=== PATIENT | female | born 1965 ===

== ENCOUNTER 2017-05-11 08:16 | Day surgery (SDC) | payer MEDICAID ==
[2017-05-11] MEDS ORDERED: Lactated Ringer's 500 ML IV ONE (08:46)
[2017-05-11 08:53] VITALS: BMI 31.6
[2017-05-11] MEDS ORDERED: Midazolam 2 MG/2 ML VIAL ONE (11:56)
[2017-05-11] MEDS ORDERED: Propofol 10 mg/ml Inj (20 ML) ONE ×2 (11:56→12:21)
[2017-05-11 12:41] VITALS: O2SAT 100
[2017-05-11 12:54] VITALS: BP 118/65; PULSE 58; RESP 15; TEMP 97
== END 2017-05-11 13:18 | disposition home or self-care (01) ==
LOC: H.ENDO 08:16
PROVIDERS: ATTEND Internal Medicine Gastroenterology
DX: Z12.11 Encounter for screening for malignant neoplasm of colon (principal); K57.30 Diverticulosis of large intestine without perforation or abscess without bleeding; K64.0 First degree hemorrhoids; K29.70 Gastritis, unspecified, without bleeding
CPT/HCPCS: 43239; 45378; 88305; 88313; J2001; J2250; J2704; J7120